=== PATIENT | female | born 2000 | race Caucasian/White ===

== ENCOUNTER 2021-02-15 23:27 | Emergency (ER) | payer OTHER ==
[2021-02-16 00:05] LABS: URINE APPEARANCE CLOUDY; URINE COLOR YELLOW
[2021-02-16 00:06] LABS: URINE BILIRUBIN NEGATIVE (NEGATIVE); URINE BLOOD NEGATIVE (NEGATIVE); URINE GLUCOSE NEGATIVE (NEGATIVE); URINE KETONE NEGATIVE (NEGATIVE); URINE LEUKOCYTE ESTERASE 1+ (NEGATIVE); URINE NITRATE NEGATIVE (NEGATIVE); URINE PROTEIN(semi-quant) TRACE mg/dL (NEGATIVE); URINE UROBILINOGEN NORMAL (NORMAL)
[2021-02-16] MEDS ORDERED: MACROBID 100 M100 MG PO (00:32)
[2021-02-16 00:38] VITALS: BP 133/92
== END 2021-02-16 00:38 | disposition home or self-care (01) ==
LOC: ED 23:27
PROVIDERS: Nurse Practitioner
DX: R51.9 Headache, unspecified (principal); N39.0 Urinary tract infection, site not specified
CPT/HCPCS: J1885; J2550

== ENCOUNTER 2022-07-06 18:37 | Emergency (ER) | payer SELFPAY ==
[~2022-07-06 18:37] MED LIST: MACROBID 100 M100 MG PO; PROAIR HFA0.09 MG/AC IH
[2022-07-06] MEDS ORDERED: PRENATAL TABLE1 EAC1 PO (19:08)
[2022-07-06 19:29] LABS: BASO # 0.02 K/mm3 (0.02-0.10); EOS # 0.02 K/mm3 (0.04-0.40); EOS % 0.2 % (1.0-5.0); HEMATOCRIT 40.3 % (37.0-47.0); HEMOGLOBIN 13.7 g/dL (12.5-16.0); LYMPH# 1.56 K/mm3 (1.50-4.00); MEAN CELL VOLUME 86 fl (78-100); MEAN CORPUSCULAR HEMOGLOBIN 29 pg (27-31); MEAN CORPUSCULAR HGB CONC 34 g/dL (33-37); MEAN PLATELET VOLUME 11.6 fl (7.4-10.4); MONO # 0.48 K/mm3 (0.20-0.80); NEU # 6.93 K/mm3 (1.40-6.50); PLATELET COUNT 207 K/mm3 (130-400); RED BLOOD COUNT 4.71 M/mm3 (4.10-5.30); RED CELL DISTRIBUTION WIDTH 11.8 % (11.5-14.5)
[2022-07-06 19:37] LABS: ALBUMIN 4.9 g/dL (3.5-5.0); POTASSIUM 3.7 mmol/L (3.5-5.1)
[2022-07-06 19:38] LABS: CALCIUM 10.3 mg/dL (8.3-10.5)
[2022-07-06 19:39] LABS: TOTAL PROTEIN 8.3 g/dL (6.4-8.3)
[2022-07-06 19:41] LABS: TOTAL BILIRUBIN 0.5 mg/dL (0.2-1.2)
[2022-07-06 20:24] VITALS: BP 124/78
[2022-07-07 00:05] LABS: URINE APPEARANCE HAZY; URINE COLOR YELLOW; URINE PROTEIN(semi-quant) 1+ (NEGATIVE)
[2022-07-07 00:06] LABS: URINE BILIRUBIN NEGATIVE (NEGATIVE); URINE BLOOD NEGATIVE (NEGATIVE); URINE GLUCOSE NEGATIVE (NEGATIVE); URINE KETONE 3+ (NEGATIVE); URINE LEUKOCYTE ESTERASE NEGATIVE (NEGATIVE); URINE MUCUS PRESENT (NOT PRESENT); URINE NITRATE NEGATIVE (NEGATIVE); URINE UROBILINOGEN NORMAL (NORMAL)
== END 2022-07-06 20:24 | disposition home or self-care (01) ==
LOC: ED 18:37
PROVIDERS: Family Medicine
DX: O21.9 Vomiting of pregnancy, unspecified (principal); Z3A.08 8 weeks gestation of pregnancy; Z28.310 Unvaccinated for COVID-19
CPT/HCPCS: A9270-GY; J7030